=== PATIENT | female | born 1975 | race Caucasian/White ===

== ENCOUNTER 2018-12-03 10:14 | Emergency (ER) | payer BC, OTHER ==
[2018-12-03 10:37] VITALS: BMI 29.1
[2018-12-03] MEDS ORDERED: Sodium Chloride 0.9% 1,000 ML IV STA (11:39)
[2018-12-03 12:13] LABS: BASO # 0.1 K/uL (0.0-0.2); BASO % 0.7 % (0.0-2.0); EOS # 0.1 K/uL (0.0-0.7); HEMOGLOBIN 13.4 g/dL (12.0-16.0); LYMPH # 2.6 K/uL (1.0-4.3); LYMPH % 28.3 % (20.0-40.0); MEAN CELL VOLUME 84.3 fl (81.0-99.0); MEAN CORPUSCULAR HEMOGLOBIN 28.9 pg (27.0-31.0); MEAN CORPUSCULAR HGB CONC 34.2 g/dL (33.0-37.0); MONO # 0.5 K/uL (0.0-0.8); MONO % 5.7 % (0.0-10.0); NEUT # 5.8 K/uL (1.8-7.0); NEUT % 64.3 % (50.0-75.0); RBC 4.64 Mil/uL (3.80-5.20); RED CELL DISTRIBUTION WIDTH 13.7 % (11.5-14.5); WHITE BLOOD COUNT 9.1 K/uL (4.8-10.8)
[2018-12-03 12:20] LABS: SQUAMOUS EPITHIAL 5 /hpf (0-5); URINE BACTERIA RARE (<OCC); URINE BILIRUBIN NEGATIVE (NEGATIVE); URINE BLOOD MODERATE (NEGATIVE); URINE CLARITY CLOUDY (Clear); URINE COLOR YELLOW (YELLOW); URINE GLUCOSE (UA) NEG (NEGATIVE); URINE LEUKOCYTE ESTERASE MOD Leu/uL (Negative); URINE PROTEIN NEGATIVE (NEGATIVE); URINE UROBILINOGEN 0.2-1.0 mg/dL (0.2-1.0)
[2018-12-03 12:25] LABS: ALB/GLOB RATIO 1.3 (1.0-2.1); ALBUMIN 4.5 g/dL (3.5-5.0); ALT/SGPT 93 U/L (9-52); AST/SGOT 133 U/L (14-36); BLOOD UREA NITROGEN 10 mg/dl (7-17); CALCIUM 9.8 mg/dL (8.4-10.2); GFR NON-AFRICAN AMERICAN > 60; LIPASE 226 U/L (23-300)
--- NOTE | 2018-12-03 13:11 | ED PDOC ---
HPI: Abdomen Time Seen by Provider: 12/03/18 11:24 Chief Complaint (Nursing): Abdominal Pain History Per: Patient Additional Complaint(s): Pt. states for the past 3 days she's had progressively worsening L sided pelvic pain. Reports she gets this pain monthly and occurs all the time during her menstruation. Pt. states she was dx with an "ovarian cyst" on the L side. Has been taking Advil without relief (last dose taken at 0900). Denies N/V/D, fever, chills, abdominal pain, incontinence, rash, vaginal discharge. OBGYN: Dr. Regina Betts Past Medical History Reviewed: Historical Data, Nursing Documentation, Vital Signs Vital Signs: Last Vital Signs Temp 98.4 F 12/03/18 10:35 Pulse 75 12/03/18 10:35 Resp 19 12/03/18 10:35 BP 153/92 H 12/03/18 10:35 Pulse Ox 98 12/03/18 10:35 Primary Care Provider: Regina Betts - Family History Family History: States: Diabetes - Home Medications Home Medications: Ambulatory Orders Medication Instructions Recorded Diclofenac Sodium [Voltaren] 50 mg PO TID #30 ect 01/25/16 Naproxen [Naprosyn] 500 mg PO BID PRN #10 tab 12/03/18 Nitrofurantoin Macrocrystals 100 mg PO BID #14 cap 12/03/18 [Macrobid] - Allergies Allergies/Adverse Reactions: Allergies Allergy/AdvReac Type Severity Reaction Status Date / Time No Known Allergies Allergy Verified 12/03/18 11:23 Review of Systems ROS Statement: Except As Marked, All Systems Reviewed And Found Negative Genitourinary Female: Positive for: Pelvic Pain Physical Exam - Physical Exam Appears: Positive for: Well, Uncomfortable, In Acute Distress (painful distress) Skin: Positive for: Normal Color, Warm. Negative for: Rash Eye Exam: Positive for: Normal appearance Cardiovascular/Chest: Positive for: Regular Rate, Rhythm Respiratory: Positive for: Normal Breath Sounds. Negative for: Respiratory Distress Gastrointestinal/Abdominal: Positive for: Soft, Tenderness (L sided pelvic tenderness) Back: Positive for: Normal Inspection. Negative for: L CVA Tenderness, R CVA Tenderness Neurological/Psych: Positive for: Awake, Alert, Oriented (x3) - Laboratory Results Result Diagrams: 12/03/18 12:09 12/03/18 12:09 Lab Results: Total Bilirubin 0.5 mg/dl (0.2-1.3) 12/03/18 12:09 AST 133 U/L (14-36) H 12/03/18 12:09 ALT 93 U/L (9-52) H D 12/03/18 12:09 Alkaline Phosphatase 78 U/L (38-126) 12/03/18 12:09 Total Protein 8.2 G/DL (6.3-8.2) 12/03/18 12:09 Albumin 4.5 g/dL (3.5-5.0) 12/03/18 12:09 Globulin 3.6 gm/dL (2.2-3.9) 12/03/18 12:09 Albumin/Globulin Ratio 1.3 (1.0-2.1) 12/03/18 12:09 Lipase 226 U/L (23-300) 12/03/18 12:09 Urine Color Yellow (YELLOW) 12/03/18 12:09 Urine Clarity Cloudy (Clear) 12/03/18 12:09 Urine pH 6.0 (5.0-8.0) 12/03/18 12:09 Ur Specific [place]on 1.008 (1.003-1.030) 12/03/18 12:09 Urine Protein Negative mg/dL (NEGATIVE) 12/03/18 12:09 Urine Glucose (UA) Neg mg/dL (NEGATIVE) 12/03/18 12:09 Urine Ketones Negative mg/dL (NEGATIVE) 12/03/18 12:09 Urine Blood Moderate (NEGATIVE) 12/03/18 12:09 Urine Nitrate Negative (NEGATIVE) 12/03/18 12:09 Urine Bilirubin Negative (NEGATIVE) 12/03/18 12:09 Urine Urobilinogen 0.2-1.0 mg/dL (0.2-1.0) 12/03/18 12:09 Ur Leukocyte Esterase Mod Duncan/uL (Negative) 12/03/18 12:09 Urine RBC (Auto) 4 /hpf (0-3) H 12/03/18 12:09 Urine Microscopic WBC 10 /hpf (0-5) H 12/03/18 12:09 Ur Squamous Epith Cells 5 /hpf (0-5) 12/03/18 12:09 Urine Bacteria Rare (<OCC) 12/03/18 12:09 - ECG O2 Sat by Pulse Oximetry: 98 - Progress ED Course And Treament: Labs, Toradol 30mg IV, TVUS ordered. Urine C&S sent. 1515 TVUS: Uterine fibroids-that no lower anterior uterine segment is similar in a ppearance. That seen in the fundus on the current exam projects posterior- previously an anterior fundal fibroid have been noted-on this exam no anterior fundal fibroid seen. On re-evaluation, pt. sleeping comfortably. Easily arousable. Reports good relief of pain. Informed of all results. Advised to f/u with Dr. Betts (pt's OBGYN) for further evaluation. Re-evaluation Time: 15:14 Condition: Re-examined, Improved Disposition - Clinical Impression Clinical Impression: UTI (urinary tract infection), Fibroids - Patient ED Disposition Is Patient to be Admitted: No - Disposition Referrals: Regina Betts MD [Medical Doctor] - Disposition: Routine/Home Disposition Time: 15:15 Condition: IMPROVED Additional Instructions: FOLLOW UP WITH DR. REGINA BETTS FOR FURTHER EVALUATION RETURN TO ED IMMEDIATELY IF SYMPTOMS WORSEN Prescriptions: Naproxen [Naprosyn] 500 mg PO BID PRN #10 tab PRN Reason: Pain Nitrofurantoin Macrocrystals [Macrobid] 100 mg PO BID #14 cap Instructions: Urinary Tract Infection, Adult (DC), Uterine Fibroids (DC) Print Language: LUXEMBOURGER
--- NOTE | 2018-12-03 15:10 | US ---
Date of service: 12/03/2018 HISTORY: L sided pelvic pain LMP 11/26/2018 COMPARISON: 01/25/2016 TECHNIQUE: Transabdominal and transvaginal scanning performed. Color Doppler applied FINDINGS: UTERUS: Measures 8.7 x 4.9 x 4.2 cm. Anteverted appearance the prior lower uterine segment anterior intramural fibroid now measures 2.0 x 2.0 x 1.1 cm. This appears fairly similar with prior 2016 images. The current measurements are larger compared to the prior measurements this is believed due to differences in measured caliber placements rather than true interval change. Posterior fundal fibroid 1.7 x 1.8 x 1.7 cm. Previously an anterior fibroid was labeled currently no anterior fundal fibroid is noted on this exam. Changes in transducer orientation can sometimes result in this.. ENDOMETRIUM: Measures 12 mm in diameter. Tiny echogenicity was within the endocervical canal lining the endocervical mucosa prior inflammatory changes can result in this appearance. CERVIX: Clustered nabothian cysts noted RIGHT OVARY: Measures 4.4 x 2.2 x 2.0 cm. No solid mass. Normal flow. A dominant right ovarian follicle measuring 1.5 x 1.3 x 1.7 cm in size is noted.-this is an interval change. Nevertheless physiological changes for it are favored. LEFT OVARY: Measures 4.2 x 2.5 x 2.0 cm. No solid mass. Normal flow. FREE FLUID: No significant free fluid noted. OTHER FINDINGS: None. IMPRESSION: Uterine fibroids-that no lower anterior uterine segment is similar in appearance. That seen in the fundus on the current exam projects posterior-previously an anterior fundal fibroid have been noted-on this exam no anterior fundal fibroid seen. Other findings as above.
[2018-12-03 16:11] VITALS: BP 120/78; PULSE 64; RESP 16; TEMP 98.3; O2SAT 100
== END 2018-12-03 16:00 | disposition home or self-care (01) ==
LOC: H.ER 10:14
DX: N39.0 Urinary tract infection, site not specified (principal); D25.9 Leiomyoma of uterus, unspecified
CPT/HCPCS: 76830; 80053; 81003; 83690; 85025; 87086; 96374; 99284; J1885; J7030